=== PATIENT | male | born 1955 | race Caucasian/White ===

== ENCOUNTER 2016-11-25 08:17 | Emergency (ER) | payer SELFPAY ==
[2016-11-25 08:26] VITALS: BP 127/74; PULSE 96; TEMP 98.5; BMI 36.0
--- NOTE | 2016-11-26 12:58 | EKG ---
Test Reason : Blood Pressure : / mmHG Vent. Rate : 090 BPM Atrial Rate : 090 BPM P-R Int : 144 ms QRS Dur : 076 ms QT Int : 348 ms P-R-T Axes : 060 049 014 degrees QTc Int : 425 ms NORMAL SINUS RHYTHM NONSPECIFIC T WAVE ABNORMALITY ABNORMAL ECG NO PREVIOUS ECGS AVAILABLE Confirmed by GENNARO AMADOR MD ([id number]) on 11/26/2016 12:58:14 PM Referred By: Confirmed By:GENNARO AMADOR MD
== END 2016-11-25 08:43 | disposition left against medical advice (07) ==
LOC: JER 08:17
DX: Z53.21 Procedure and treatment not carried out due to patient leaving prior to being seen by health care provider (principal)
CPT/HCPCS: 93005; 93010; 99281-25

== ENCOUNTER 2021-04-07 21:30 | Emergency (ER) | payer OTHER ==
[2021-04-07 21:38] VITALS: TEMP 98.1; BMI 38.7
[2021-04-07] MEDS ORDERED: MAG HYDROX/AL HYDROX/SIMETH -MYLANTA- ORAL SUSPENSION PO ONE (22:15)
[2021-04-07] MEDS ORDERED: FAMOTIDINE 20 MG/50 ML IVPB 20 MG/50 ML MG IVPB ONE (22:15)
[2021-04-07] MEDS ORDERED: MAG HYDROX/AL HYDROX/SIMETH 30 ML UNIT-DOSE CUP ONE (22:45)
[2021-04-07] MEDS ORDERED: FAMOTIDINE/PF 20 MG/2 ML VIAL ONE (22:46)
[2021-04-07 23:05] LABS: BASO % 0.8 % (0-2.0); EOS % 1.8 % (0-4.5); HEMOGLOBIN 14.6 GM/dL (11.7-16.9); LYMPH % 22.3 % (8-40); MCH 28.5 pg (25.7-33.7); MEAN CELL VOLUME 83.6 fl (80-96); MEAN PLT VOLUME 9.3 fl (7.5-11.1); MONO % 6.5 % (3.8-10.2); NEUT % 68.6 % (42.8-82.8); PLATELET COUNT 245 10^3/uL (134-434); RBC 5.14 M/mm3 (4.00-5.60); RDW 14.8 % (11.9-15.9); WHITE BLOOD COUNT 14.2 K/mm3 (4.0-10.0)
[2021-04-07 23:33] LABS: CHLORIDE 105 mmol/L (98-107); SODIUM 139 mmol/L (136-145)
[2021-04-07 23:35] LABS: ALBUMIN 3.2 g/dl (3.4-5.0); ANION GAP 9 MMOL/L (8-16); BLOOD UREA NITROGEN 7.8 mg/dL (7-18); CALCIUM 8.5 mg/dL (8.5-10.1); CO2 26 mmol/L (21-32)
[2021-04-07 23:36] LABS: GLUCOSE,RANDOM 118 mg/dL (74-106)
[2021-04-07 23:38] LABS: CREATININE 0.7 mg/dL (0.55-1.3); SGOT/AST 37 U/L (15-37); SGPT/ALT 43 U/L (13-61)
[2021-04-07 23:40] LABS: BILIRUBIN,TOTAL 0.5 mg/dL (0.2-1); TOT PROT 7.3 g/dl (6.4-8.2)
[2021-04-07 23:41] LABS: ALK PHOS 84 U/L (45-117)
[2021-04-08 01:03] LABS: LIPASE 477 U/L (73-393)
[2021-04-08 01:48] VITALS: BP 155/82; PULSE 85
== END 2021-04-08 01:48 | disposition home or self-care (01) ==
LOC: JER 21:30
PROC: 3E033GC Introduction of Other Therapeutic Substance into Peripheral Vein, Percutaneous Approach (ICD-10-PCS; principal; 2021-04-07)
DX: R10.13 Epigastric pain (principal)
CPT/HCPCS: 36415; 76705-TC; 80053; 83690; 84484; 85025; 93005; 93010; 99285-25

== ENCOUNTER 2023-04-20 21:48 | Emergency (ER) | payer OTHER ==
[2023-04-20 22:04] VITALS: TEMP 97.7; BMI 38.7
[2023-04-21] MEDS ORDERED: CEPHALEXIN MONOHYDRATE 500 MG CAPSULE (UD) PO ONE (02:11)
[2023-04-21] MEDS ORDERED: CEPHALEXIN MONOHYDRATE 500 MG CAPSULE (UD) ONE (02:17)
[2023-04-21 02:20] VITALS: BP 140/80; PULSE 70; RESP 19
== END 2023-04-21 02:20 | disposition home or self-care (01) ==
LOC: JER 21:48
DX: M79.604 Pain in right leg (principal); S81.801A Unspecified open wound, right lower leg, initial encounter; W22.8XXA Striking against or struck by other objects, initial encounter
CPT/HCPCS: 73590-TC-RT-FY; 93971-TC; 99284-25

== ENCOUNTER 2023-11-10 23:58 | Emergency (ER) | payer OTHER ==
[2023-11-11 00:07] VITALS: BP 109/71; PULSE 85; RESP 20; BMI 37.1
== END 2023-11-11 01:13 | disposition home or self-care (01) ==
LOC: JER 23:58
DX: K91.840 Postprocedural hemorrhage of a digestive system organ or structure following a digestive system procedure (principal)
CPT/HCPCS: 99282-25

== ENCOUNTER 2024-03-10 09:51 | Emergency (ER) | payer OTHER ==
[2024-03-10 10:17] VITALS: BP 134/86; PULSE 88; RESP 17; TEMP 98.8; BMI 35.6
[2024-03-10] MEDS ORDERED: KETOROLAC TROMETHAMINE 30 MG/1 ML VIAL ONE (11:06)
[2024-03-10] MEDS: KETOROLAC TROMETHAMINE 30 MG/1 ML VIAL IM ONE (11:11)
== END 2024-03-10 13:07 | disposition home or self-care (01) ==
LOC: JERFT 09:51
PROC: 3E0133Z Introduction of Anti-inflammatory into Subcutaneous Tissue, Percutaneous Approach (ICD-10-PCS; principal; 2024-03-10)
DX: S69.92XA Unspecified injury of left wrist, hand and finger(s), initial encounter (principal); M54.2 Cervicalgia; R51.9 Headache, unspecified; M79.89 Other specified soft tissue disorders; W19.XXXA Unspecified fall, initial encounter
CPT/HCPCS: 70450-TC; 72125-TC; 73110-TC-LT-FY; 73130-TC-LT-FY; 99284-25